=== PATIENT | female | born 1940 | race Caucasian/White ===

== ENCOUNTER 2017-03-12 17:52 | Inpatient (IN) | payer OTHER ==
[~2017-03-12] VITALS: Ht 170.2 cm; Wt 74.1 kg
[2017-03-12] MEDS ORDERED: ONDANSETRON HCL 4 MG/2 ML VIAL IV ONE (18:30)
[2017-03-12] MEDS ORDERED: MORPHINE SULF INJ 2 MG/ML SYRINGE 1ML IV ONE (18:30)
[2017-03-12 18:46] LABS: Basophils # (auto) 0.1 uL; Basophils % (auto) 0.6 % (0.0-2.0); Eosinophils # (auto) 0 uL; Eosinophils % (auto) 0.2 % (0.0-7.0); Hematocrit 37.8 % (36.0-46.0); Hemoglobin 12.9 g/dL (12.2-16.2); Lymphocytes # (auto) 1.3 uL; Lymphocytes % (auto) 13.7 % (10.0-50.0); Mean Corpuscular Hemoglobin 32.3 pg (28.0-32.0); Monocytes # (auto) 0.7 uL; Neutrophils # (auto) 7.4 uL; Neutrophils % (auto) 78.5 % (37.0-80.0); Nucleated Red Blood Cells % 0.1 %; Platelet Count (auto) 361 10^3/uL (140-450); Red Blood Cells 3.98 10^6/uL (4.0-5.20); Red Cell Distribution Width 13.6 % (11.8-14.3); White Blood Cell 9.4 10^3/uL (4.4-10.8)
[2017-03-12 19:05] LABS: Albumin 3.8 g/dL (3.4-5.0); BUN/Creatinine Ratio 24.6; Bilirubin, Total 0.3 mg/dL (0.2-1.0); Magnesium 1.9 mg/dL (1.6-2.6); Potassium 3.8 mmol/L (3.5-5.1); Total Protein 7.2 g/dL (6.4-8.2)
[2017-03-12] MEDS ORDERED: MORPHINE SULFATE 4 MG/ML SYR/VIAL ONE (23:52)
[2017-03-13] MEDS ORDERED: MELO1TAB56 PO (00:43)
[2017-03-13] MEDS ORDERED: HYDR-4683 PO (00:43)
[2017-03-13] MEDS ORDERED: METO25TA5 PO (00:43)
[2017-03-13] MEDS ORDERED: TEMA30CA PO (00:43)
[2017-03-13] MEDS ORDERED: AMLO5TAB2 PO (00:43)
[2017-03-13] MEDS ORDERED: GLIP-115 PO (00:43)
[2017-03-13] MEDS ORDERED: HYDR25TA4 PO (00:43)
[2017-03-13] MEDS ORDERED: ATOR10TA PO (00:43)
[2017-03-13] MEDS ORDERED: METF-371 PO (00:43)
[2017-03-13] MEDS ORDERED: LOSA100T27 PO (00:43)
[2017-03-13] MEDS ORDERED: OMEP20CA74 PO (00:43)
[2017-03-13] MEDS ORDERED: NITR0.4S29 SL (00:43)
[2017-03-13] MEDS ORDERED: MORPHINE SULF INJ 2 MG/ML SYRINGE 1ML IV PRN ×2 (00:45)
[2017-03-13] MEDS ORDERED: ONDANSETRON HCL 4 MG/2 ML VIAL IV PRN (00:45)
[2017-03-13] MEDS ORDERED: NITROGLYCERIN 0.4 MG SL TAB SL PRN (00:45)
[2017-03-13] MEDS ORDERED: ACETAMINOPHEN 500 MG TAB PO PRN (00:45)
[2017-03-13 02:18] LABS: Cholesterol 184 mg/dL (< 200); HDL Cholesterol 46 mg/dL (40-59); LDL Cholesterol 111 mg/dL (< 100); Triglycerides 176 mg/dL (< 150)
[2017-03-13] MEDS: HYDROcodone-ACET 5/325MG TAB PO PRN ×4 (03:38→18:54)
[2017-03-13] MEDS ORDERED: DEXTROSE (50%) 50ML SYRG IV PRN (03:45)
[2017-03-13] MEDS ORDERED: FUROSEMIDE 20 MG/2 ML VIAL IV ONE (03:45)
[2017-03-13] MEDS ORDERED: TEMAZEPAM 15 MG CAP PO PRN (03:45)
[2017-03-13 04:40] VITALS: BP 139/72
[2017-03-13 05:00] VITALS: BP 139/73
[2017-03-13] MEDS: ACCU-CHEK COMFORT CURVE STRIP VI SCH ×4 (05:57→22:08)
[2017-03-13 06:06] LABS: Basophils # (auto) 0.1 uL; Basophils % (auto) 0.9 % (0.0-2.0); Eosinophils # (auto) 0.1 uL; Eosinophils % (auto) 1.1 % (0.0-7.0); Hematocrit 36.2 % (36.0-46.0); Hemoglobin 12.2 g/dL (12.2-16.2); Lymphocytes # (auto) 1.5 uL; Mean Corpuscular Hemoglobin 32.8 pg (28.0-32.0); Mean Corpuscular Hgb Conc. 33.7 g/dL (32.0-36.0); Mean Corpuscular Volume 97.2 fL (80.0-100.0); Monocytes # (auto) 0.6 uL; Platelet Count (auto) 292 10^3/uL (140-450); Red Blood Cells 3.72 10^6/uL (4.0-5.20); Red Cell Distribution Width 13.7 % (11.8-14.3); White Blood Cell 7.2 10^3/uL (4.4-10.8)
[2017-03-13] MEDS: InsuLIN REG 1unit/0.01ml Soln (100units/ml) SC SCH ×4 (06:25→22:09)
[2017-03-13 06:39] LABS: BUN/Creatinine Ratio 28.7; Calcium 8.9 mg/dL (8.5-10.1); Potassium 3.8 mmol/L (3.5-5.1)
[2017-03-13 07:04] LABS: Urine Bacteria NONE SEEN /hpf (None Seen); Urine Blood Negative /uL (Negative); Urine WBC 5 /hpf (0 - 5)
[2017-03-13 09:00] VITALS: BP 161/82
[2017-03-13] MEDS ORDERED: LORazepam 0.5 MG TAB PO PRN (09:15)
[2017-03-13] MEDS ORDERED: POTASSIUM CHL 20 Meq TABLET PO ONE (09:30)
[2017-03-13 09:51] LABS: Prothrombin Time 10.9 sec (9.37-12.3)
[2017-03-13] MEDS ORDERED: ENOXAPARIN SOD 40 MG/0.4 ML SYRINGE SC SCH (10:00)
[2017-03-13] MEDS ORDERED: ENOXAPARIN SOD 30 MG/0.3 ML SYRINGE SC SCH (10:00)
[2017-03-13] MEDS ORDERED: ASPirin-EC 81 mg tab PO SCH (10:00)
[2017-03-13] MEDS ORDERED: IOHEXOL 350 MG/ML 100ML IJ ONE (10:23)
[2017-03-13] MEDS: METOPROLOL TARTRATE 25 MG TAB PO SCH (10:56)
[2017-03-13] MEDS: amLODIPine BESYLATE 5 MG TAB PO SCH (10:57)
[2017-03-13] MEDS ORDERED: ENOXAPARIN SOD 40 MG/0.4 ML SYRINGE SC ONE (11:30)
[2017-03-13 12:55] VITALS: BP 144/69
[2017-03-13] MEDS: SODIUM CHLORIDE 0.9% 1,000 ML IV SCH ×2 (15:45→22:09)
[2017-03-13 16:43] VITALS: BP 133/66
[2017-03-13] MEDS ORDERED: ATORVASTATIN 20 MG TAB PO SCH ×2 (22:00)
[2017-03-13 22:06] VITALS: BP 126/68
[2017-03-13] MEDS: ENOXAPARIN SOD 80 MG/0.8ML SYRINGE SC SCH (22:08)
[2017-03-14 05:05] VITALS: BP 123/56
[2017-03-14 05:10] VITALS: BP 159/79
[2017-03-14] MEDS: ACCU-CHEK COMFORT CURVE STRIP VI SCH (06:27)
[2017-03-14] MEDS: InsuLIN REG 1unit/0.01ml Soln (100units/ml) SC SCH (06:27)
[2017-03-14] MEDS: HYDROcodone-ACET 5/325MG TAB PO PRN ×2 (06:29→10:22)
[2017-03-14 09:00] VITALS: BP 160/88
[2017-03-14] MEDS: METOPROLOL TARTRATE 25 MG TAB PO SCH (10:21)
[2017-03-14] MEDS: amLODIPine BESYLATE 5 MG TAB PO SCH (10:21)
[2017-03-14] MEDS: ENOXAPARIN SOD 80 MG/0.8ML SYRINGE SC SCH (10:22)
[2017-03-14 11:11] VITALS: BP 115/63
[2017-03-14 12:30] VITALS: BP 132/70
== END 2017-03-14 12:51 | disposition home or self-care (01) | DRG 291 ==
LOC: EDBD 17:52 → ER 18:06 → OVERFLOW 18:07 → WEST WING 03-13 03:50
PROVIDERS: ADMIT Nurse Practitioner Family; ATTEND Family Medicine
DX: I13.0 Hypertensive heart and chronic kidney disease with heart failure and stage 1 through stage 4 chronic kidney disease, or unspecified chronic kidney disease (principal); I26.99 Other pulmonary embolism without acute cor pulmonale; I50.31 Acute diastolic (congestive) heart failure; J90 Pleural effusion, not elsewhere classified; E11.22 Type 2 diabetes mellitus with diabetic chronic kidney disease; N18.3 Chronic kidney disease, stage 3 (moderate); E78.5 Hyperlipidemia, unspecified; E03.9 Hypothyroidism, unspecified; F41.9 Anxiety disorder, unspecified; I25.10 Atherosclerotic heart disease of native coronary artery without angina pectoris; I25.2 Old myocardial infarction; K21.9 Gastro-esophageal reflux disease without esophagitis; Z79.899 Other long term (current) drug therapy; Z82.3 Family history of stroke; Z82.49 Family history of ischemic heart disease and other diseases of the circulatory system; Z83.3 Family history of diabetes mellitus; Z96.651 Presence of right artificial knee joint; Z90.49 Acquired absence of other specified parts of digestive tract
CPT/HCPCS: 36415; 71020; 71275; 80048; 80053; 80061; 81001; 82962; 83735; 83880; 84443; 84484; 85025; 85379; 85610; 85730; 87081; 93005; 93306; 93970; 94761; 96374; 96375; J1815; J2405